=== PATIENT | female | born 1995 | race Hispanic/Latino ===

== ENCOUNTER 2022-11-26 20:38 | Emergency (ER) | payer SELFPAY ==
[~2022-11-26] VITALS: Ht 152.4 cm; Wt 59.0 kg
[2022-11-26] MEDS ORDERED: SODIUM CHLORIDE 0.9% 1000ML 1,000 ML IV ONE (22:45)
[2022-11-26] MEDS ORDERED: POTASSIUM CHLORIDE 20 MEQ TAB CR PO STA (23:30)
[2022-11-26] MEDS ORDERED: SODIUM CHLORIDE 0.9% 1000ML 1,000 ML ONE (23:32)
[2022-11-27] MEDS ORDERED: POTASSIUM CHLORIDE 20 MEQ TAB CR PO ONE (00:24)
[2022-11-27] MEDS ORDERED: ONDANSETRON ODT4 MG PO (00:27)
[2022-11-27] MEDS ORDERED: PEPCID20 MG PO (00:28)
== END 2022-11-27 00:45 | disposition home or self-care (01) ==
LOC: FSED 21:56
DX: R11.0 Nausea (principal); E87.6 Hypokalemia; E86.0 Dehydration; R74.8 Abnormal levels of other serum enzymes
CPT/HCPCS: 71046; 80053; 81003; 82553; 84484; 85025; 93005; 99284; J7030